=== PATIENT | male | born 1960 | race Caucasian/White ===

== ENCOUNTER → 2021-12-15 | Outpatient (CLI) | payer OTHER ==
[~2021-12-15] MED LIST: FLOMAX 0.40.4 MG/CAP PO; LORTAB 5/500 501 TAB PO; NO HOME MEDICATIONS; PERCOCET 500 MG1 TAB PO; ZOFRAN4 MG PO
== END ==
LOC: COL.RAD 09:00
DX: M71.20 Synovial cyst of popliteal space [Baker], unspecified knee (principal)